=== PATIENT | male | born 1950 | race Caucasian/White ===

== ENCOUNTER 2019-04-12 09:32 | Day surgery (SDC) | payer MEDICARE, OTHER, SELFPAY ==
[2019-02-27 09:28] VITALS: BMI 29.7
--- NOTE | 2019-02-27 09:54 | HP_ITS ---
Intake Vital Signs 02/27/19 Height 5 ft 7.75 in 02/27/19 Weight: 194 lb 7 oz 02/27/19 Body Mass Index (BMI) 29.7 02/27/19 Blood Pressure 164/103 H 02/27/19 Blood Pressure Location Rt brachial 02/27/19 Blood Pressure Position Sitting 02/27/19 Respiratory Rate 20 H 02/27/19 Pulse Rate 106 H 02/27/19 Pulse Ox 96 Intake Visit Reasons: C-Scope Consult Chief Complaint: 5 year colonoscopy, fam hx Deli Associate Required: No Is patient in pain?: No Allergies No Known Allergies Allergy (Verified 02/27/19 09:29) Medications NK 02/27/19 [History Confirmed 02/27/19] [facility] Medical History (Updated 02/27/19 @ 09:53 by Edward Das MD) Family history of colon cancer in father (Acute) No significant medical problems (Acute) Surgical History (Updated 02/27/19 @ 09:27 by Perla Jones) History of cholecystectomy (Acute) History of colonoscopy (Acute ~2014) History of eye surgery (Acute) History of left inguinal hernia repair (Acute) History of ventral hernia repair (Acute ~2008) Status post laparoscopic Narciso fundoplication (Acute ~2003) Family History (Updated 02/27/19 @ 09:28 by Perla Jones) Mother Hypertension Heart disease Father Colon cancer Sister Cerebral palsy Social History (Updated 02/27/19 @ 09:54 by Edward Das MD) Smoking Status: Never smoker HPI HPI HPI: SINDY HENDRICKS, is a 69 M who presents to the office today for HPI HPI Surgical H&P: Yes HPI: SINDY HENDRICKS, is a 69 M who presents to the office today for surgical consultation regarding a colonoscopy. Primary care physician is Dr. Jefferson Abdalla and a written copy of my surgical consult recommendations will be returned to him. The patient has a family history of colon cancer in his father. The patient states that he has had previous endoscopies. It is most pertinent that his most recent attempt was performed by Dr. Farhan Gutierrez manager of environmental services with the [facility]. It is apparent that the patient presented and had a failed colonoscopy because of an inadequate bowel prep. Then the patient had a redo attempt and the examination could not be completed secondary to tortuosity. Then the patient was referred for a barium enema which was completed on May 16, 2014 demonstrating extensive diverticulosis but fecal debris limiting visualization. The patient is now referred for further surveillance technique. He denies bright red blood per rectum or melena. Weight is been stable. His health has otherwise been unchanged ROS General General: No weight change, appetite, fatigue, colon cancer, breast cancer or weakness HEENT HEENT: No difficulty swallowing, eye injury, eye surgery, swollen glands or hoarseness Endo Endocrine: No thyroid disease, diabetes mellitus, thyroid cancer, Hair loss, heat intolerance or cold intolerance Musc Musculoskeletal: No back problems, arthritis, rheumatoid arthritis, gout or joint pain Cardio Cardiovascular: No murmur, pacemaker, heart disease, atrial fibrillation, high blood pressure, heart attack, heart stent, palpitations, shortness of breat with exertion or chest pain Resp Respiratory: No shortness of breath, No sleep apnea, No cough, No COPD, No asthma, No emphysema, No wheezing Gastro Gastrointestinal: No abdominal pain, No nausea or vomiting, No diarrhea, No constipation, No blood in stool, No acid reflux, No hemorrhoids, No ulcers, No gallbladder problem, No black,tarry stools Gadiel Hematologic: No blood thinners, No blood disorders, No bleeding, No anemia, No blood clots Neuro Neurologic: No weakness Exam Const General: cooperative, healthy appearing, comfortable Nutritional Appearance: overweight Orientation: alert, awake [facility] Head: normal to inspection Chest Chest palpation & inspection: normal inspection of the chest Resp Effort & Inspection: normal respiratory effort Auscultation: clear to auscultation bilaterally Cardio Rate: regular rate Rhythm: regular rhythm Heart Sounds: no murmurs GI Palpation: soft, no hepatosplenomegaly Auscultation: normal bowel sounds Skin General: no rashes or lesions noted Neuro General: alert, awake Cognition: normal cognition Extrem General: no calf tenderness bilaterally Psych Affect: normal affect Assessment & Plan Problems 1. Family history of colon cancer in father Z80.0 Plan 69-year-old gentleman referred for colonoscopy. His most recent attempt 2014 was unsuccessful in part secondary to poor bowel prep on one occasion in part secondary to tortuosity. Even the barium enema appears to have a lack of complete clarity. I proposed with the patient a colonoscopy with possible biopsy or polypectomy as indicated. I anticipate utilizing monitored anesthesia care. We will place the patient on clear liquids for 2 days anticipate a 2-day bowel prep. He is aware of the technique, benefits, risks, alternatives. He is aware of the increased risk for technical difficulty associated with the procedure. He has had an opportunity to ask and have questions answered. We will schedule and proceed as noted. I appreciate the opportunity of assisting with his surgical care. CC: Dr. Jefferson Das M.D., F.A.C.S. Orders Orders: Colonoscopy Today Coding Level of Care Code 54762 Diagnoses Family history of colon cancer in father Z80.0 02/27/19 0955 <Electronically signed by Edward reddy MD> Date _ Edward Das MD I have re-examined the patient. There are no clinical changes since date of exam.
[2019-04-12] VITALS (7 sets, daily range): BP systolic 82–123; BP diastolic 61–95; PULSE 88–102; RESP 16; TEMP 36.2–36.8; O2SAT 91–96; BMI 28.8
[2019-04-12] MEDS: Lactated Ringers 1,000 ML 100 ML IV (10:24)
--- NOTE | 2019-04-12 10:45 | COLBX_PTH ---
PATIENT: SINDY HENDRICKS LOC: EN U#:[id number] AGE/SX: 69/M ROOM: RE04/12/[address]: Dr. Edward Das MD : 1950 BED: DIS: 04/12/2019 SPEC #: [id number] RECD: 04/12/19 11:27 STATUS: SCOTT FUCamelia #: [id number] MAGNUS: 04/12/19 10:[address]: Edward Das DEPT: SURGICAL PATHOLOGY RECD BY: Riccardo Dickson ENTERED: 04/12/19 11:54 SP TYPE: COLON BX OTHR DR: Dr. Jefferson Abdalla MD Tissues: Sigmoid colon biopsy Procedures: Surgery Specimen Level IV HEADER OPERATION: Colonoscopy (MAC) PRE-OP DIAGNOSIS: Screening colonoscopy TISSUE SUBMITTED: Mucosal fullness, proximal sigmoid MICROSCOPIC DIAGNOSIS Mucosal fullness, proximal sigmoid, biopsy: Fragments of colonic mucosa with focal hyperplastic changes. SJ:pauly 04/15/19 MICROSCOPIC DESCRIPTION Slides are reviewed. GROSS DESCRIPTION Received in fixative is one container labeled with the patient's name and designated mucosal fullness proximal sigmoid. The specimen consists of two irregular fragments of light piedra soft tissue that in aggregate measure 0.6 x 0.3 x 0.1 cm. The specimen is totally submitted in one cassette. / SJ:pauly 04/12/19 TC:5 CPT: 96944
--- NOTE | 2019-04-15 14:18 | OP.CCLET_ITS ---
04/15/2019 Jefferson Abdalla Re : Colonoscopy procedure for Carlos Chan Dear Lianne This procedure was performed on Friday, April 12, 2019. My impressions and recommendations are as follows: Impressions : - Preparation of the colon was fair. Diverticulum with stool and scattered areas of thick liquid stool which could partially be aspirated. - Non-thrombosed external hemorrhoids, non-thrombosed internal hemorrhoids, internal hemorrhoids that prolapse with straining, but require manual replacement into the anal canal (Grade III) and enlarged prostate found on digital rectal exam. - Diverticulosis in the entire examined colon. - One 6 mm mucosal fullness/polyp in the proximal sigmoid colon, removed with a cold biopsy forceps. Resected and retrieved. Recommendations : - Await pathology results. - Repeat colonoscopy in 5 years for surveillance based on pathology results. May simply be mucosa. - Telephone my office for pathology results in 1 week. - Continue present medications. My findings are described in the full procedure note, which is enclosed. If I can be of further assistance, please feel free to contact me at Doctor phone number(s): Work: . Sincerely, Edward Das MD 04/12/2019 11:19:29 AM This report has been signed electronically.
--- NOTE | 2019-04-15 14:18 | OP.COLON_ITS ---
Patient Name: Carlos Chan Procedure Date: 04/12/2019 10:44 AM Date of : 1950 Age: 69 Procedure: Colonoscopy Indications: Screening for colorectal malignant neoplasm Providers: Edward Das MD Referring MD: Jefferson Abdalla Medicines: See the Anesthesia note for documentation of the administered medications Patient Profile: Last Colonoscopy: 2014. Complications: No immediate complications. Procedure: Pre-Anesthesia Assessment: - Prior to the procedure, a History and Physical was performed, and patient medications and allergies were reviewed. The patient's tolerance of previous anesthesia was also reviewed. The risks and benefits of the procedure and the sedation options and risks were discussed with the patient. All questions were answered, and informed consent was obtained. Prior Anticoagulants: The patient has taken no previous anticoagulant or antiplatelet agents. ASA Grade Assessment: II - A patient with mild systemic disease. After reviewing the risks and benefits, the patient was deemed in satisfactory condition to undergo the procedure. After I obtained informed consent, the scope was passed under direct vision. Throughout the procedure, the patient's blood pressure, pulse, and oxygen saturations were monitored continuously. The adult colonoscope was introduced through the anus and advanced to the cecum, identified by appendiceal orifice and ileocecal valve. The colonoscopy was performed with moderate difficulty due to multiple diverticula in the colon. Successful completion of the procedure was aided by changing the patient to a supine position and using manual pressure. The patient tolerated the procedure well. The quality of the bowel preparation was fair. The ileocecal valve and the appendiceal orifice were photographed. Scope In: 10:53:12 AM Scope Withdrawal Time 0 hours 9 minutes 55 seconds Scope Out: 11:11:39 AM Total Procedure Duration Time 0 hours 18 minutes 27 seconds Findings: The digital rectal exam findings include non-thrombosed external hemorrhoids, non-thrombosed internal hemorrhoids, internal hemorrhoids that prolapse with straining, but require manual replacement into the anal canal (Grade III) and enlarged prostate. Multiple diverticula were found in the entire colon. A 6 mm mucosal fullness, possible polyp was found in the proximal sigmoid colon. This was sessile and was removed with a cold biopsy forceps. Resection and retrieval were complete. Impression: - Preparation of the colon was fair. Diverticulum with stool and scattered areas of thick liquid stool which could partially be aspirated. - Non-thrombosed external hemorrhoids, non-thrombosed internal hemorrhoids, internal hemorrhoids that prolapse with straining, but require manual replacement into the anal canal (Grade III) and enlarged prostate found on digital rectal exam. - Diverticulosis in the entire examined colon. - One 6 mm mucosal fullness/polyp in the proximal sigmoid colon, removed with a cold biopsy forceps. Resected and retrieved. Recommendation: - Await pathology results. - Repeat colonoscopy in 5 years for surveillance based on pathology results. May simply be mucosa. - Telephone my office for pathology results in 1 week. - Continue present medications. Procedure Code(s): --- Professional --- 13705, Colonoscopy, flexible; with biopsy, single or multiple Diagnosis Code(s): --- Professional --- Z12.11, Encounter for screening for malignant neoplasm of colon K64.2, Third degree hemorrhoids K64.4, Residual hemorrhoidal skin tags D12.5, Benign neoplasm of sigmoid colon K57.30, Diverticulosis of large intestine without perforation or abscess without bleeding N40.0, Benign prostatic hyperplasia without lower urinary tract symptoms CPT copyright 2017 [employer]. All rights reserved. The codes documented in this report are preliminary and upon medical office manager review may be revised to meet current compliance requirements. Edward Das MD 04/12/2019 11:19:29 AM This report has been signed electronically. Number of Addenda: 0 Note Initiated On: 04/12/2019 10:44 AM
== END 2019-04-12 12:06 | disposition home or self-care (01) ==
LOC: EN 09:33 → AC 09:36
PROVIDERS: Family Provider Family Medicine; PCP Family Medicine; Referring Provider Family Medicine; Visit Provider Surgery
PROC: 0DJD8ZZ Inspection of Lower Intestinal Tract, Via Natural or Artificial Opening Endoscopic (ICD-10-PCS; CPT 45378; principal; 2019-04-12 10:40)
DX: Z12.11 Encounter for screening for malignant neoplasm of colon (principal); K64.2 Third degree hemorrhoids; K64.4 Residual hemorrhoidal skin tags; D12.5 Benign neoplasm of sigmoid colon; K57.30 Diverticulosis of large intestine without perforation or abscess without bleeding; N40.0 Benign prostatic hyperplasia without lower urinary tract symptoms; Z80.0 Family history of malignant neoplasm of digestive organs; E66.3 Overweight; Z68.29 Body mass index [BMI] 29.0-29.9, adult
CPT/HCPCS: 45380; 88305; J7120; J2405

== ENCOUNTER → 2020-01-28 16:40 | Outpatient (CLI) | payer MEDICARE, OTHER, SELFPAY ==
[2019-04-12 10:17] VITALS: BMI 28.8
== END ==
PROVIDERS: PCP Family Medicine; Referring Provider Family Medicine; Visit Provider Family Medicine
DX: Z03.818 Encounter for observation for suspected exposure to other biological agents ruled out (principal)
CPT/HCPCS: 87635; C9803; U0003

== ENCOUNTER → 2021-01-20 | Outpatient (CLI) | payer MEDICARE, OTHER, SELFPAY | END | disposition home or self-care (01) | LOC: LABSPEC 01-21 09:09 | PROVIDERS: PCP Family Medicine; Visit Provider Family Medicine | DX: Z20.822 Contact with and (suspected) exposure to COVID-19 (principal) | CPT/HCPCS: 87635; U0005; U0003 ==

== ENCOUNTER → 2021-02-03 07:10 | Outpatient (CLI) | payer MEDICARE, OTHER, SELFPAY ==
--- NOTE | 2021-02-03 07:13 | CT_ITS ---
STUDY: CT ABDOMEN AND PELVIS WITH CONTRAST REASON FOR EXAM: Male, 71 years old. 4 month history of left lower quadrant pain. RADIATION DOSAGE (If Supplied By Facility): CTDIvol = ( 17.17 ) mGy, DLP = ( 1021.64 ) mGycm TECHNIQUE: Transaxial images were obtained from the dome of the diaphragm to the symphysis pubis without oral contrast. 100 ML ISOVUE 370 was administered. Sagittal and coronal images were reconstructed. Individualized dose optimization techniques were used for this CT. COMPARISON: None. FINDINGS: The visualized lung bases are unremarkable. The visualized portions of the heart are within normal limits. There is decreased attenuation of the liver consistent with steatosis. The patient is status post cholecystectomy. Normal spleen. Normal pancreas. Normal bilateral adrenal glands. Normal right kidney. Normal left kidney. There is a moderate sized hiatal hernia. The patient is status post partial gastrectomy. Normal small intestine. There are multiple colonic diverticula consistent with diverticulosis. The appendix is visualized and appears normal. There is diffuse atherosclerotic calcification of the abdominal aorta, without a demonstrated aneurysm. Normal inferior vena cava. Normal retroperitoneum. Normal urinary bladder. There is enlargement of the prostate gland. It measures 5.5 cm x 3.9 cm. This causes indentation of the base of the bladder. There is a small umbilical hernia containing fat. Small right inguinal hernia containing fat. Mild degree of disc space narrowing and disc degeneration at the L5-S1. CT/Abdomen/Pelvis WITH Contrast IMPRESSION: Fatty infiltration of the liver. Sigmoid diverticulosis. Moderate sized hiatal hernia with evidence of prior gastric surgery. Small right inguinal hernia containing fat. Electronically Signed: Hayden Rogers MD at 9:24 EST , Service support ,
[2021-02-03 07:25] LABS: CREATININE FINGERSTICK 1.1 mg/dL (0.70-1.30); EGFR FINGERSTICK > 60.0000 mL/min (>60)
== END ==
PROVIDERS: PCP Family Medicine; Referring Provider Family Medicine; Visit Provider Family Medicine
DX: K76.0 Fatty (change of) liver, not elsewhere classified (principal); K57.30 Diverticulosis of large intestine without perforation or abscess without bleeding; K44.9 Diaphragmatic hernia without obstruction or gangrene; K40.90 Unilateral inguinal hernia, without obstruction or gangrene, not specified as recurrent
CPT/HCPCS: 74177; Q9967

== ENCOUNTER → 2021-03-04 09:37 | Outpatient (CLI) | payer MEDICARE, OTHER, SELFPAY ==
--- NOTE | 2021-03-04 09:42 | CDU_ITS ---
Reason For Study: amourosis fugax Rt. Velocities/BP Lt. Velocities/BP Prox CCA 87.8/18.6 cm/sec. Prox CCA 86.3/23.7 cm/sec. Mid CCA 63.0/14.7 cm/sec. Mid CCA 75.3/17.6 cm/sec. Dist CCA 52.6/14.7 cm/sec. Dist CCA 77.7/17.6 cm/sec. Prox ICA 59.7/12.4 cm/sec. Prox ICA 42.1/13.9 cm/sec. Mid ICA 41.0/16.8 cm/sec. Mid ICA 60.5/20.0 cm/sec. Dist ICA 43.2/16.8 cm/sec. Dist ICA 58.1/20.0 cm/sec. Rt. ICA/CCA = .9. Lt. ICA/CCA = .8. Prox ECA 73.4/14.7 cm/sec. Prox ECA 86.3/13.9 cm/sec. Rt. Vert. 32.2/11.3 cm/sec. Lt. Vert. 48.5/7.8 cm/sec. Right Extracranial There is intimal thickening but no significant atherosclerotic plaque noted in the right common carotid artery. There is intimal thickening but no significant atherosclerotic plaque noted in the right internal carotid artery. There is intimal thickening but no significant atherosclerotic plaque noted in the right external carotid artery. Antegrade flow is noted in the right vertebral artery. Left Extracranial There is intimal thickening but no significant atherosclerotic plaque noted in the left common carotid artery. There is intimal thickening but no significant atherosclerotic plaque noted in the left internal carotid artery. There is intimal thickening but no significant atherosclerotic plaque noted in the left external carotid artery. Antegrade flow is noted in the left vertebral artery. Procedure Carotid Duplex 68364. This is a Carotid Duplex examination using B-mode, color flow and specral Doppler. The exam was diagnostic. Exam performed in department. VL/Carotid Duplex Ultrasound Interpretation Summary No hemodynamically significant plaque or stenosis bilateral extracranial caroti d arteries with less than 50% stenosis bilateral internal carotid arteries Less than 50% stenosis bilateral external carotid arteries Patent and antegrade vertebral arteries bilaterally Ordering Physician: Pierre Gonzalez Performed By: Osmin Wright RVT
== END ==
PROVIDERS: PCP Family Medicine; Visit Provider Ophthalmology
DX: H53.10 Unspecified subjective visual disturbances (principal)
CPT/HCPCS: 93880

== ENCOUNTER 2021-04-19 10:35 | Day surgery (SDC) | payer MEDICARE, OTHER, SELFPAY ==
--- NOTE | 2021-04-15 12:44 | EKG12_ITS ---
Test Reason : PREOP Blood Pressure : / mmHG Vent. Rate : 089 BPM Atrial Rate : 089 BPM P-R Int : 218 ms QRS Dur : 088 ms QT Int : 354 ms P-R-T Axes : 043 -25 030 degrees QTc Int : 430 ms Sinus rhythm with 1st degree A-V block Inferior infarct , age undetermined Abnormal ECG Confirmed by VIRGINIA PEREIRA, MICHAELA ([id number]), video editor HEATHER WILBURN ([id number]) on 04/16/2021 8:56:40 AM Referred By: Edward Das Confirmed By:MICHAELA COLEMAN MD
[2021-04-15 13:18] LABS: Absolute Lymphocyte Count 1.93 X10^3/uL (0.83-4.51); Basophil# 0.04 X10^3/uL; Basophil% 0.5 % (0-1); Eosinophil# 0.19 X10^3/uL; Eosinophils% 2.4 % (0-5); Hematocrit 44.2 % (40-54); Lymphocyte # 1.93 X10^3/ul (0.83-4.51); Lymphocyte % 24.5 % (19-41); Mean Corp Hgb Conc 31.7 g/dL (32-36); Mean Corpuscular Hgb 29.8 pg (27.0-32.0); Mean Platelet Vol. 10.5 fl (6.2-12.0); Monocyte# 0.64 X10^3/uL; Monocyte% 8.1 % (0-10); NRBC Flagged by Analyzer 0 % (0-5); Neutrophil # 5.04 X10^3/uL (2.7-7.7); Neutrophil % 64.1 % (47-70); Platelet Count 239 K/mm3 (150-450); RBC Distribution Width CV 12.8 % (11.6-14.6); RBC Distribution Width SD 44.4 fl (35.1-43.9); White Blood Count 7.9 K/mm3 (4.4-11.0)
[2021-04-15 13:41] LABS: Anion Gap 4 (5-15); BUN 19 mg/dL (7-18); BUN/Creat Ratio 16.5 RATIO (10-20); Calcium,Total 8.5 mg/dL (8.5-10.1); Chloride 108 mmol/L (98-107); Creatinine, Serum 1.15 mg/dL (0.70-1.30); EST Glomerular Filtration Rate 67 mL/min (>60); Est Glom Filt Rate - Afr Amer 81 mL/min (>60); Glucose 95 mg/dL (74-106); Sodium Level 140 mmol/L (136-145)
[2021-04-19 10:56] VITALS: BP 126/95; PULSE 122; RESP 20; TEMP 36.2; O2SAT 99; BMI 29.6
[2021-04-19] MEDS: Lactated Ringers 1,000 ML 15 ML IV (11:10)
--- NOTE | 2021-04-19 11:20 | HP.PCM_ITS ---
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 Is patient in pain?: No Allergies No Known Allergies Allergy (Verified 04/05/21 13:33) Medications aspirin 81 mg tablet,delayed release 81 mg PO DAILY 04/05/21 [History Confirmed 04/05/21] tamsulosin 0.4 mg capsule 0.4 mg PO QHS #30 cap 04/05/21 [Rx Confirmed 04/05/21] PFSH Medical History Family history of colon cancer in father No significant medical problems Surgical History History of cholecystectomy History of colonoscopy (~2014) History of eye surgery History of left inguinal hernia repair History of ventral hernia repair (~2008) Status post laparoscopic Narciso fundoplication (~2003) Family History (Updated 04/05/21 @ 13:31 by Angelica Monday) Mother Hypertension Heart disease Arthritis Diabetes Father Colon cancer CVA (cerebral vascular accident) Sister Cerebral palsy Social History (Updated 02/27/19 @ 09:[address] Edward Das MD) Smoking Status: Never smoker HPI HPI HPI: SINDY HENDRICKS, is a 71 M who presents to the office today for surgical consultation regarding an umbilical hernia and a right inguinal hernia. The patient is referred by Dr. Jefferson Abdalla and a written copy of my surgical consult and recommendations will return to him I most recently assisted him April 12, 2019 with a colonoscopy. Bowel prep was fair. Diverticulum noted, hemorrhoids, solitary polyp of the proximal sigmoid which was hyperplastic. The patient presents today because he has been having some right lower quadrant pain. He claims that he routinely runs for exercise. This is been limited because of the right lower quadrant discomfort. He claims that kicking a ball also was uncomfortable. Any type of physical exercise or straining causes discomfort. He reminds me that 7 or 8 years ago I assisted him with a left inguinal hernia repair. 18 years ago at [facility] he had a hiatal hernia repair. At the [facility] February 03, [address] scan of the abdomen pelvis was obtained. Liver had steatosis. Moderate size hiatal hernia noted suggesting possible previous gastrectomy but the patient states just a hiatal hernia repair. Colonic diverticulosis identified. Patient has a markedly enlarged prostate at 5.5 x 3.9 cm. There is a small umbilical hernia with fat. There is a small right inguinal hernia with fat. ROS General General: No weight change, appetite, fatigue, colon cancer, breast cancer or weakness HEENT HEENT: No difficulty swallowing, eye injury, eye surgery, swollen glands or hoarseness Endo Endocrine: No thyroid disease, diabetes mellitus, thyroid cancer, Hair loss, heat intolerance or cold intolerance Skin Skin: No rash or changing moles Musc Musculoskeletal: No back problems, arthritis, rheumatoid arthritis, gout or joint pain Cardio Cardiovascular: No murmur, pacemaker, heart disease, atrial fibrillation, high blood pressure, heart attack, heart stent, palpitations, shortness of breat with exertion or chest pain Psych Psychiatric: No depression, anxiety or hearing voices Resp Respiratory: No shortness of breath, No sleep apnea, No cough, No COPD, No asthma, No emphysema and No wheezing Gastro Gastrointestinal: Yes abdominal pain, No nausea or vomiting, No diarrhea, No constipation, No blood in stool, No acid reflux, No hemorrhoids, No ulcers, No gallbladder problem and No black,tarry stools Additional Details: Pt states abdominal discomfort but denies pain Gadiel Hematologic: Yes blood thinners, No blood disorders, No bleeding, No anemia and No blood clots Additional Details: 81mg ASA daily Neuro Neurologic: No system reviewed and no additional complaints, except as documented, No as per HPI, No abnormal gait, No abnormal hearing, No abnormal movements, No abnormal speech, No behavioral changes, No burning sensations, No confusion, No convulsions, No disequilibrium, No dizziness, No localized weakness, No frequent falls, No headache(s), No lack of coordination, No loss of vision, No memory loss, No numbness, No other visual disturbances, No radicular pain, No restless legs, No sensory deficit, No syncope, No tingling, No tremor(s), No weakness and No other Exam Const General: cooperative, healthy appearing, comfortable and no acute distress Nutritional Appearance: average body habitus Orientation: alert and awake [facility] Head: normal to inspection Eyes General: appearance normal, both eyes and all related structures Neck Neck: normal visual inspection Chest Chest palpation & inspection: normal inspection of the chest Resp Effort & Inspection: normal respiratory effort Auscultation: clear to auscultation bilaterally Cardio Rate: regular rate Rhythm: regular rhythm GI Palpation: soft and no hepatosplenomegaly Auscultation: normal bowel sounds Other: Long midline incision extending from the xiphoid down to the umbilicus. Tenderness deep within the umbilicus consistent with a ventral incisional hernia related to the patient's previous efforts. Other: Testicles are descended Left groin solid and intact Obvious defect right groin likely direct defect slightly tender to deep palpation but reducible Musc Cervical Spine: normal cervical lordosis Skin General: no rashes or lesions noted Neuro General: patient alert and patient awake Extrem General: no calf tenderness Psych Appearance: grossly normal Assessment and Plan Assessment and Plan (1) Inguinal hernia of right side without obstruction or gangrene: Status: Acute (2) Ventral incisional hernia without obstruction or gangrene: Status: Acute Plan - Dr. Edward Das MD: Patient with a symptomatic right inguinal hernia. Findings suggest also a ventral incisional hernia at the umbilicus. I propose for him a laparoscopic right inguinal hernia repair. I will anticipate a direct approach at the umbilicus with careful cutdown technique and a Fabian catheter insertion. Then anticipate hopefully a clean laparoscopic repair of the right inguinal hernia with mesh. Care will need to be observed for possible adhesions related to his remote open hiatal hernia repair done through a long xiphoid to umbilical incision. The patient has had an opportunity to ask and have questions answered. He has a large prostate. Notes that he does have urinary retention and when he had his cholecystectomy in the past he had to have a catheter postoperatively. We will initiate him on tamsulosin therapy 0.4 mg nightly. He is aware that he may still require a catheter post procedure if he is not able to void. He has had an opportunity to ask and have questions answered. We will schedule and proceed at his discretion. He is aware of the COVID-19 surge and is aware that we are still permitted to do outpatient surgical procedures. I appreciate the opportunity of assisting with the surgical care. Copy: Dr. Jefferson Das M.D., F.A.C.S. I have re-examined the patient. There are no clinical changes since date of exam.
--- NOTE | 2021-04-19 11:21 | EX.PCM.DISCH ---
Discharge Instructions Procedure General Surgery Diet Discharge Diet: Light diet - advance as tolerated (if you have questions about your diet instructions, please talk to you doctor.) Activity Discharge Activity: May Not Drive (for 3-5 days or while taking narcotic pain medicine.) May shower in (days): 1 Lifting Restrictions: 10 pounds Dressing / Incision Call your doctor if your incision/area has: Continuous Slow Oozing, Sudden Increased Bleeding, Increased Pain/ Swelling, Increased Redness and Foul Smelling Discharge Call your doctor if you observe: Fever of 101 or Higher Suture Line Care: Avoid Pulling/Pushing and Avoid Pinching/Bending Additional Dressing/Incision Instructions:: Change or remove dressing in 4 days. Leave steri-strips in place for 1 week. Follow Up Care Please Follow Up With: Edward Das MD When: Call [phone] to make an appointment to be seen in about 10 days. Test Results: Test results from this visit will be discussed in further detail at your follow-up appointment, if applicable. Discharge Plan Admission Attending Provider: Edward Das Primary Care Provider: Jefferson Abdalla Discharge Orders/Prescriptions Prescriptions: No Action aspirin [Adult Low Dose Aspirin] 81 mg tablet,delayed release (DR/EC) 81 mg PO DAILY RF: 0 tamsulosin [Flomax] 0.4 mg capsule 0.4 mg PO QHS Qty: 30 RF: 0 Probiotic 10 billion cell Capsule 10,000 mmu cells PO DAILY RF: 0
[2021-04-19] MEDS: Cefazolin 2 GM in 0.9% Normal Saline 100 ML IV (11:53)
[2021-04-19] MEDS: Bupivacaine Mpf 0.5% 30 ML VIAL (12:15)
--- NOTE | 2021-04-19 12:55 | HERN_PTH ---
PATIENT: SINDY HENDRICKS [place] [facility] [place][id number] AGE/SX: 71/M ROOM: RE04/19/[address]: Dr. Edward Das MD : 1950 BED: DIS: 04/19/2021 SPEC #: [id number] RECD: 04/19/21 14:32 STATUS: SCOTT HYATT #: [id number] MAGNUS: 04/19/21 12:[address]: Edward Das DEPT: SURGICAL PATHOLOGY RECD BY: Ila Carolina ENTERED: 04/20/21 11:21 SP TYPE: Hernia OTHR DR: Dr. Jefferson Abdalla MD Tissues: HERNIA Procedures: Surgery Specimen Level II HEADER OPERATION: Laparoscopic inguinal hernia repair, open ventral/umbilical PRE-OP DIAGNOSIS: Right inguinal hernia, umbilical/ventral hernia TISSUE SUBMITTED: Umbilical hernia sac and contents MICROSCOPIC DIAGNOSIS Soft tissue of umbilical region, excision: Fragment of fibrofatty tissue consistent with hernia sac and contents. AM:pauly 04/21/2021 MICROSCOPIC DESCRIPTION Slides are reviewed. GROSS DESCRIPTION Received in fixative is one container labeled with the patient's name and designated umbilical hernia sac and contents. The specimen consists of two pieces of yellow adipose tissue that in aggregate measure 2 x 1.5 x 0.5 cm. Sections reveal yellow adipose cut surfaces. The larger piece is serially sectioned. The entire specimen is submitted in one cassette. / SJ:pauly 04/20/2021 TC:5 CPT: 47222
--- NOTE | 2021-04-19 13:32 | PCM.OPRPT ---
Problems Associated Problem List Diagnoses (1) Inguinal hernia of right side without obstruction or gangrene: (2) Ventral incisional hernia without obstruction or gangrene: Report of Operation Date of Procedure: 04/19/21 Pre-Operative Diagnosis: Ventral incisional umbilical hernia, right inguinal hernia Post-Operative Diagnosis: Ventral incisional umbilical hernia, direct and indirect right inguinal hernia Surgery/Procedure Performed:: Laparoscopic right inguinal herniorrhaphy with Bard 3D max extra-large mesh. Lot [id number], reference [id number], expiry date 11/21/2025 Ventral incisional umbilical herniorrhaphy with Ventralex ST 6.4 cm diameter: Lot number [id number], reference #[id number], expiry date 11/21/2022 Secure strap Lot number [id number], expiry date September 2022 Description of Surgical Findings:: Timeout informed consent was obtained. Clean procedure. 71-year-old gentleman was taken to the operating place upon the table underwent general endotracheal intubation esthesia. The abdomen sterilely prepped and draped. 1% lidocaine mixed 50-50 with 0.5% Marcaine was used as a local anesthetic. Throughout the procedure total 30 cc was used. A transverse infraumbilical incision was created sharp dissection carried down through the subcutaneous tissue the ventral incisional hernia at the umbilicus was identified the sac was dissected free direct access was gained to the peritoneum and a sun catheter was inserted the abdomen insufflated with CO2 to a pressure of 10 mmHg pressure. Under recognization 5 mm trochars were placed in the right and left lower quadrant there were adhesions of omentum surrounding the S sign and these were transected using Hem-o-mitchel clips and hot hook electrocautery until I had the entire periumbilical area freed of adhesions. A ileal inguinal nerve block was performed in the right groin using laparoscopic control. The peritoneum superior lateral to the internal ring was incised carried medially the peritoneum was then completely dissected free it became evident that the patient had both an indirect and indirect hernia. The direct indirect and femoral area completely dissected. A Bard 3D max extra-large mesh was placed so as to cover the direct indirect and femoral area. It was secured in place medially superiorly and laterally with secure strap. Excellent positioning was achieved. The peritoneum was approximated to itself with secure strap. Small rent in the peritoneum was repaired with Hem-o-mitchel clips. Complete obliteration of the mesh was achieved. Subsequently the abdomen was allowed to deflate through an antiviral valve. A 6.[address] mesh was placed at the umbilical site and the tails were secured with 0 Nurolon. The fascia was approximated transversely with the same. The abdomen was reinsufflated to 6 mmHg pressure. A single secure strap was used to make sure that the Ventralex was flat. I then used a Hem-o-mitchel clip to assure that omentum was directly beneath the mesh. Inspection revealed that all bowel was in normal fashion without adverse event. The abdomen was now allowed to deflate of the CO2. Skin edges were approximated with interrupted and running subicular 4-0 Monocryl. Steri-Strips Telfa OpSite dressings applied. Sponge and instrument and needle counts were reported to certainly be correct. Specimens ventral incisional umbilical hernia sac with contents. Drains none. Blood loss minimal. Edward Das M.D., F.A.C.S. Surgeon: Edward Das Type of Anesthesia: General and Local Anesthesiologist: Ney Mohan
[2021-04-19 13:48] VITALS: BP 108/76; BP 126/95; PULSE 92; RESP 18; TEMP 36.4; O2SAT 99
[2021-04-19 14:00] VITALS: BP 103/68; BP 126/95; PULSE 92; RESP 18; O2SAT 95
[2021-04-19 14:15] VITALS: BP 111/72; BP 126/95; PULSE 98; RESP 18; O2SAT 98
[2021-04-19 14:45] VITALS: BP 123/79; BP 126/95; PULSE 103; RESP 16; TEMP 36.1; O2SAT 93
[2021-04-19 15:46] VITALS: BP 126/95; BP 138/86; PULSE 94; RESP 16; TEMP 35.8; O2SAT 96
== END 2021-04-19 23:59 | disposition home or self-care (01) ==
LOC: SDC 10:36 → AC 10:37
PROVIDERS: PCP Family Medicine; Referring Provider Surgery; Visit Provider Surgery
PROC: (CPT 49650; principal; 2021-04-19 12:35)
DX: K40.90 Unilateral inguinal hernia, without obstruction or gangrene, not specified as recurrent (principal); K43.2 Incisional hernia without obstruction or gangrene; K66.0 Peritoneal adhesions (postprocedural) (postinfection); Z79.82 Long term (current) use of aspirin; Z80.0 Family history of malignant neoplasm of digestive organs
CPT/HCPCS: 49650; 49560; 49568; 00840; 36415; 80048; 85025; 88302; 93005; C1781; J7120; J2405

== ENCOUNTER 2021-05-20 18:05 | Outpatient (CLI) | payer MEDICARE, OTHER, SELFPAY | END 2021-05-20 23:59 | disposition home or self-care (01) | PROVIDERS: PCP Family Medicine; Visit Provider Family Medicine | DX: N41.0 Acute prostatitis (principal) | CPT/HCPCS: 87077; 87086; 87088 ==

== ENCOUNTER 2022-10-04 08:26 | Outpatient (CLI) | payer MEDICARE, OTHER, SELFPAY ==
[2022-10-04 10:39] LABS: Absolute Lymphocyte Count 1.87 X10^3/uL (0.83-4.51); Absolute Neutrophil Count 3.4 X10^3/uL (2.0-7.7); Basophil# 0.03 X10^3/uL; Basophil% 0.5 % (0-1); Eosinophil# 0.28 X10^3/uL; Eosinophils% 4.6 % (0-5); Hematocrit 44.7 % (40-54); Hemoglobin 14.8 g/dL (13.0-16.5); Lymphocyte # 1.87 X10^3/ul (0.83-4.51); Lymphocyte % 30.6 % (19-41); Mean Corp Hgb Conc 33.1 g/dL (32-36); Mean Corpuscular Volume 90.5 fL (80-94); Mean Platelet Vol. 10.6 fl (6.2-12.0); Monocyte# 0.55 X10^3/uL; NRBC Flagged by Analyzer 0 % (0-5); Neutrophil # 3.37 X10^3/uL (2.7-7.7); Neutrophil % 55.1 % (47-70); Platelet Count 262 K/mm3 (150-450); RBC Distribution Width CV 13.5 % (11.6-14.6); Red Blood Count 4.94 M/mm3 (4.6-6.2); White Blood Count 6.1 K/mm3 (4.4-11.0)
[2022-10-04 11:29] LABS: ALB/GLOB Ratio 0.8 RATIO (0.9-2.4); AST(SGOT) 18 U/L (15-37); Alanine Aminotransfer ALT/SGPT 19 U/L (16-61); Albumin, Serum 3.5 g/dL (3.2-5.0); Alkaline Phosphatase 88 U/L (45-117); Anion Gap 5 (5-15); BUN 20 mg/dL (7-18); BUN/Creat Ratio 17.2 RATIO (10-20); Chloride 109 mmol/L (98-107); Cholesterol 140 mg/dL (200); Creatinine, Serum 1.16 mg/dL (0.70-1.30); EST Glomerular Filtration Rate 66 mL/min (>60); Est Glom Filt Rate - Afr Amer 80 mL/min (>60); Globulin 4.3 g/dL (2.2-4.2); Glucose 93 mg/dL (74-106); High Density Lipoprotein 48 mg/dL; Protein, Total 7.8 g/dL (6.4-8.2); Sodium Level 137 mmol/L (136-145); Triglycerides 127 mg/dL; Very Low Density Lipoprotein 25 mg/dL (5-40)
== END 2022-10-04 23:59 | disposition home or self-care (01) ==
LOC: MTLAB 08:29
PROVIDERS: PCP Family Medicine; Referring Provider Family Medicine; Visit Provider Family Medicine
DX: Z00.00 Encounter for general adult medical examination without abnormal findings (principal); Z13.1 Encounter for screening for diabetes mellitus; Z13.220 Encounter for screening for lipoid disorders
CPT/HCPCS: 36415; 80053; 80061; 85025

== ENCOUNTER → 2023-03-03 | Outpatient (CLI) | payer MEDICARE, OTHER, SELFPAY ==
[2023-03-03 12:40] LABS: Absolute Lymphocyte Count 1.92 X10^3/uL (0.83-4.51); Absolute Neutrophil Count 3.8 X10^3/uL (2.0-7.7); Basophil# 0.03 X10^3/uL; Basophil% 0.5 % (0-1); Hematocrit 45.1 % (40-54); Hemoglobin 14.9 g/dL (13.0-16.5); Lymphocyte # 1.92 X10^3/ul (0.83-4.51); Lymphocyte % 29.1 % (19-41); Mean Corpuscular Hgb 31.1 pg (27.0-32.0); Mean Corpuscular Volume 94.2 fL (80-94); Mean Platelet Vol. 10.6 fl (6.2-12.0); Monocyte# 0.57 X10^3/uL; Monocyte% 8.6 % (0-10); NRBC Flagged by Analyzer 0 % (0-5); Neutrophil # 3.84 X10^3/uL (2.7-7.7); Neutrophil % 58.3 % (47-70); Platelet Count 272 K/mm3 (150-450); RBC Distribution Width CV 12.9 % (11.6-14.6); RBC Distribution Width SD 44.4 fl (35.1-43.9); Red Blood Count 4.79 M/mm3 (4.6-6.2); White Blood Count 6.6 K/mm3 (4.4-11.0)
[2023-03-03 13:59] LABS: Cholesterol 150 mg/dL (200); High Density Lipoprotein 50 mg/dL; PSA,Total - Annual Screen 1.47 ng/mL (0.00-4.00); Triglycerides 143 mg/dL; Very Low Density Lipoprotein 29 mg/dL (5-40)
== END | disposition home or self-care (01) ==
LOC: MFPLAB 11:07
PROVIDERS: PCP Family Medicine; Visit Provider Family Medicine
DX: Z00.00 Encounter for general adult medical examination without abnormal findings (principal); Z12.5 Encounter for screening for malignant neoplasm of prostate; Z13.1 Encounter for screening for diabetes mellitus; Z13.6 Encounter for screening for cardiovascular disorders; Z13.220 Encounter for screening for lipoid disorders; R36.1 Hematospermia
CPT/HCPCS: 36415; 80061; 84153; 85025; G0103

== ENCOUNTER 2023-04-13 11:12 | Outpatient (CLI) | payer MEDICARE, OTHER, SELFPAY ==
--- OUTSIDE RECORDS SUMMARY | 2023-04-13 11:46 | XMS RPT_ITS | CCD ---
Author Name Unknown Address [address] [place] [address] Organization [facility] Care Team Providers Care Traffic Engineering Director Name Role Phone Farhan Lopez Primary Care Provider Maury Leavitt Primary Care Provider Medications Completed/Discontinued Medications Medication Drug Class(es) Dates Sig (Normalized) Sig (Original) tamsulosin hydrochloride 0.4 mg oral capsule (1 source) alpha-Adrenergic Nandini Start: 11-12-2010 End: 02-09-2012 take 1 capsule by mouth once daily at bedtime tamsulosin (FLOMAX) 0.4 mg ORAL Cp24 Take 1 capsule by mouth daily at bedtime. 14 capsule 0 11/12/2010 02/09/2012 Discontinued (Course of therapy completed) Problems Active Problems Problem Classification Problem Date Documented Date Episodic/Chronic Diverticulosis and diverticulitis (1 source) Diverticulosis of colon; Translations: [Diverticulosis of large intestine without perforation or abscess without bleeding] Onset: 06-13-2008 02-16-2010 Chronic Esophageal disorders (1 source) Gastro-esophageal reflux disease with esophagitis; Translations: [Reflux esophagitis] Onset: 02-02-2005 02-16-2010 Chronic Hyperplasia of prostate (1 source) Benign prostatic hyperplasia; Translations: [Benign prostatic hyperplasia without lower urinary tract symptoms] Onset: 02-16-2010 02-16-2010 Chronic Other nutritional; endocrine; and metabolic disorders (1 source) Obesity; Translations: [Obesity, unspecified] Onset: 05-26-2008 02-16-2010 Chronic Past or Other Problems Problem Classification Problem Date Documented Date Episodic/Chronic Abdominal hernia (1 source) Inguinal hernia; Translations: [Unilateral inguinal hernia, without obstruction or gangrene, not specified as recurrent] Onset: 05-26-2008 02-16-2010 Episodic Biliary tract disease (1 source) Biliary calculus; Translations: [Calculus of 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] Onset: 10-04-2010 10-04-2010 Episodic Conditions associated with dizziness or vertigo (1 source) Peripheral vertigo; Translations: [Other peripheral vertigo, unspecified ear] Onset: 05-26-2008 02-16-2010 Episodic Genitourinary symptoms and ill-defined conditions (1 source) Blood in urine; Translations: [Hematuria, unspecified] Onset: 05-26-2008 02-16-2010 Episodic Residual codes; unclassified (1 source) Family history of malignant neoplasm of gastrointestinal tract; Translations: [Family history of malignant neoplasm of digestive organs] Onset: 06-03-2008 02-16-2010 Episodic Encounters Encounter Date Encounter Type Care Provider Facility Start: 11-12-2010 End: 11-12-2010 Telephone encounter Edward Das Work Phone: General Surgery Procedures Date Procedure Procedure Detail Performing Clinician Start: 03-28-2014 Colonoscopy Edward ferrera Work Phone: Plan of Treatment Date Care Activity Detail Author Start: 11-25-2020 Influenza vaccination INFLUENZA (Sea son Ended) [facility] Start: 2019 LIPID SCREEN LIPID SCREEN [facility] Start: 06-13-2017 PROSTATE CANCER SCRE ENING DISCUSSION PROSTATE CANCER SCREENING DISCUSSION [facility] Start: 03-28-2017 Screening for malign ant neoplasm of colon [facility] Start: 2017 DIABETES SCREEN DIABETES SCREEN [facility] Start: 01-05-2017 ADVANCE DIRECTIVE DISCUSSION ADVANCE DIRECTIVE DISCUSSION [facility] Start: 01-05-2017 PNEUMOVAX AGE 65 AND OVER WITH 5YR LOOKBACK (#1) PNEUMOVAX AGE 65 AND OVER WITH 5YR LOOKBACK (#1) [facility] Start: 03-21-2013 SHINGRIX VACCINE (2 of 3) COLLINS GRIX VACCINE (2 of 3) [facility] Start: 01-05-2002 Screening for malign ant neoplasm of colon [facility] Start: 01-05-1971 Urine microalbumin profile DTAP,TDAP ,TD (1 - Tdap) [facility] Start: 01-05-1970 HEPATITIS C SCREENING HEPATITIS C SHAGUFTA BARRAGAN [facility] Start: 1964 Adult depression scr ning assessment DEPRESSION SCREENING [facility] Immunizations Immunization Date Immunization Notes Care Provider Iva adamesradhika 12-31-2009 influenza virus vacc ine, unspecified formulation Edward Das Work Phone: [facility] 02-02-2005 tetanus and diphther ia toxoids, adsorbed, preservative free, for adult use (2 Lf of tetanus toxoid and 2 Lf of diphtheria toxoid) Edward Das Work Phone: [facility] Payers Date Payer Category Payer Unknown MMO [employer]ZZM[employer] SU[employer] PLUS [id number] 2007-2018 PPO [id number] Social History Date Type Detail Facility Start: 11-01-2010 Tobacco smoking stat us [facility] Never smoker [facility] Start: 11-01-2010 Alcohol intake Current non-dr associate partner of alcohol (finding) [facility] Start: 1950 Sex Assigned At Not on file [facility] History of Past illness Narrative 03-28-2014 Note Date & Type Note Facility documented as of this encounter (statuses as of 07/14/2020) [facility] Note 11-12-2010 Telephone Encounter - Laurel Pool Lpn - 11/12/2010 9:59 AM EDTTelephone Encounter - Laurel Pool Lpn - 11/12/2010 9:54 AM EDT Note Date & Type Note Facility 11-12-2010 Miscellaneous Notes Called into pharmacy at this time spoke with Estrellita lr. Patient called in stating that he is doing much better this morning and wanted to know what to do with his Casiano. Per Dr Edward Das, patient is to start taking .4mg of flomax at hs for 14 days today and D/C Casiano on Monday morning and to contact us Monday around PM if any problems voiding. Patient notified and verbalized understanding, would like to have rx phoned into [facility] in [place]. documented in this encounter [facility] Additional Source Comments Source Comments (unrecognize d section and content) In the event this informatio n is protected by the Federal Confidentiality of Alcohol and Drug Abuse Patient Records regulations: The Federal rules restrict any use of the information to criminally investigate or prosecute any alcohol or drug abuse patient.[facility] FOR RECORDS PERTAINING TO PATIENTS WHO ARE OR HAVE BEEN ENROLLED IN A CHEMICAL DEPENDENCY/SUBSTANCEABUSE PROGRAM, SOME INFORMATION MAY BE OMITTED. This clinical summary was aggregated from multiple sources. Caution should be exercised in using it in the provision of clinical care. This summary normalizes information from multiple sources, and as a consequence, information in this document may materially change the coding, format and clinical context of patient data. In addition, data may be omitted in some cases. CLINICAL DECISIONS SHOULD BE BASED ON THE PRIMARY CLINICAL RECORDS. [facility] [employer] provides no warranty or guarantee of the accuracy or completeness of information in this document.
[2023-04-14 14:09] LABS: PSA, Free 0.57 ng/mL; PSA, Free % 27.5 % (.)
== END 2023-04-13 23:59 | disposition home or self-care (01) ==
LOC: LAB 11:13
PROVIDERS: PCP Family Medicine; Referring Provider Urology; Visit Provider Urology
DX: R36.1 Hematospermia (principal)
CPT/HCPCS: 36415; 84153; 84154

== ENCOUNTER → 2023-04-14 | Outpatient (CLI) | payer MEDICARE, OTHER, SELFPAY ==
--- NOTE | 2023-04-14 13:01 | CT_ITS ---
STUDY: CT ABDOMEN AND PELVIS WITHOUT CONTRAST REASON FOR EXAM: Male, 73 years old. Fell pain and distention RADIATION DOSAGE (If Supplied By Facility): CTDIvol = ( 15.01 ) mGy, DLP = ( 724.39 ) mGycm TECHNIQUE: Transaxial images were obtained from the dome of the diaphragm to the symphysis pubis without oral contrast, and without intravenous contrast. Sagittal and coronal images were reconstructed. Individualized dose optimization techniques were used for this CT. COMPARISON: 02/03/2021 FINDINGS: The visualized lung bases are unremarkable. The visualized portions of the heart are within normal limits. There is a prominent retrocardiac hiatal hernia Normal liver. There is non-visualization of the gallbladder, which may be secondary to either contraction or a prior cholecystectomy. Normal spleen. Normal pancreas. Normal bilateral adrenal glands. Normal right kidney. Normal left kidney. Normal visualized stomach. Normal small intestine. Scattered colonic diverticula, no CT evidence of acute diverticulitis. The appendix is visualized and appears normal. Appendix seen on coronal recon images 54 through 66 There is diffuse atherosclerotic calcification of the abdominal aorta, without a demonstrated aneurysm. Normal inferior vena cava. Normal retroperitoneum. Normal urinary bladder. There are prostatic calcifications. Normal abdominal wall. There are diffuse degenerative changes of the visualized lumbar spine, and pelvis. CT/Abdomen/Pelvis without Cont IMPRESSION: No suspicious solid organ abnormality Sigmoid diverticulosis, no CT evidence of acute diverticulitis Stable hiatal hernia with evidence of gastric bypass surgery No free intraperitoneal fluid, air, or suspicious adenopathy Electronically Signed: Ortega Garcia MD at 14:04 EST ,
--- OUTSIDE RECORDS SUMMARY | 2023-04-14 13:16 | XMS RPT_ITS | CCD ---
Author Name Unknown Address [address] [place] [address] Organization [facility] Care Team Providers Care Applications Architect Name Role Phone Farhan Lopez Primary Care Provider [phone] Maury Leavitt Primary Care Provider [phone] Medications Completed/Discontinued Medications Medication Drug Class(es) Dates [...] 11-25-2020 Influenza vaccination INFLUENZA (Sea son Ended) [facility] Start: 2019 LIPID SCREEN LIPID SCREEN [facility] Start: 06-13-2017 PROSTATE CANCER SCRE ENING DISCUSSION PROSTATE CANCER SCREENING DISCUSSION [facility] Start: 03-28-2017 Screening for malign ant neoplasm of colon [facility] Start: 2017 DIABETES SCREEN DIABETES SCREEN [facility] Start: 01-05-2017 ADVANCE DIRECTIVE DISCUSSION ADVANCE DIRECTIVE DISCUSSION [facility] Start: 01-05-2017 PNEUMOVAX AGE 65 AND OVER WITH 5YR LOOKBACK (#1) PNEUMOVAX AGE 65 AND OVER WITH 5YR LOOKBACK (#1) [facility] Start: 03-21-2013 SHINGRIX VACCINE (2 of 3) COLLINS GRIX VACCINE (2 of 3) [facility] Start: 01-05-2002 Screening for malign ant neoplasm of colon [facility] Start: 01-05-1971 Urine microalbumin profile DTAP,TDAP ,TD (1 - Tdap) [facility] Start: 01-05-1970 HEPATITIS C SCREENING HEPATITIS C SHAGUFTA BARRAGAN [facility] Start: 1962 Adult depression scr ning assessment DEPRESSION SCREENING [facility] Immunizations Immunization Date Immunization Notes Care Provider Iva adamesradhika 12-31-2009 influenza virus vacc ine, unspecified formulation Edward Das Work Phone: [facility] 02-02-2005 tetanus and diphther ia toxoids, adsorbed, preservative free, for adult use (2 Lf of tetanus toxoid and 2 Lf of diphtheria toxoid) Edward Das Work Phone: [facility] Payers Date Payer Category Payer Unknown MMO ZZZMMO SUPER MED PLUS [id number] 2007-2018 PPO [id number] Social History Date Type Detail Facility Start: 11-01-2010 Tobacco smoking stat us [facility] Never smoker [facility] Start: 11-01-2010 Alcohol intake Current non-dr project inspector of alcohol (finding) [facility] Start: 1950 Sex Assigned At Not on file [facility] History of Past illness Narrative 03-28-2014 Note Date & Type Note Facility documented as of this encounter (statuses as of 07/14/2020) [facility] Note 11-12-2010 Telephone Encounter - Laurel Pool [...] like to have rx phoned into [facility] in [place]. documented in this encounter [facility] Additional Source Comments Source Comments (unrecognize d section and content) In the event this informatio n is protected by the Federal Confidentiality of Alcohol and Drug Abuse Patient Records regulations: The Federal rules restrict any use of the information to criminally investigate or prosecute any alcohol or drug abuse patient.[facility] FOR RECORDS PERTAINING TO PATIENTS WHO ARE [...] BE BASED ON THE PRIMARY CLINICAL RECORDS. [facility] [employer] provides no warranty or guarantee of the accuracy or completeness of information in this document.
== END | disposition home or self-care (01) ==
LOC: CT 12:57
PROVIDERS: PCP Family Medicine; Referring Provider Urology; Visit Provider Urology
DX: R36.1 Hematospermia (principal); R31.21 Asymptomatic microscopic hematuria
CPT/HCPCS: 74176

== ENCOUNTER → 2024-04-23 | Outpatient (CLI) | payer MEDICARE, OTHER, SELFPAY ==
[2024-04-23 10:35] LABS: Hematocrit 45.1 % (40-54); Hemoglobin 14.7 g/dL (13.0-16.5); Mean Corp Hgb Conc 32.6 g/dL (32-36); Mean Corpuscular Hgb 30.2 pg (27.0-32.0); Mean Corpuscular Volume 92.8 fL (80-94); Mean Platelet Vol. 10.4 fl (6.2-12.0); Platelet Count 263 K/mm3 (150-450); RBC Distribution Width CV 12.8 % (11.6-14.6); RBC Distribution Width SD 43.6 fl (35.1-43.9); Red Blood Count 4.86 M/mm3 (4.6-6.2); White Blood Count 6.4 K/mm3 (4.4-11.0)
[2024-04-23 11:16] LABS: ALB/GLOB Ratio 0.8 RATIO (0.9-2.4); AST(SGOT) 18 U/L (15-37); Alanine Aminotransfer ALT/SGPT 19 U/L (16-61); Albumin, Serum 3.4 g/dL (3.2-5.0); Alkaline Phosphatase 83 U/L (45-117); Anion Gap 7 (5-15); BUN 21 mg/dL (7-18); BUN/Creat Ratio 18.4 RATIO (10-20); Calcium,Total 8.9 mg/dL (8.5-10.1); Chloride 104 mmol/L (98-107); Creatinine, Serum 1.14 mg/dL (0.70-1.30); EST Glomerular Filtration Rate 67 mL/min (>60); Est Glom Filt Rate - Afr Amer 81 mL/min (>60); Globulin 4.1 g/dL (2.2-4.2); Glucose 98 mg/dL (74-106); Protein, Total 7.5 g/dL (6.4-8.2); Sodium Level 138 mmol/L (136-145)
[2024-04-23 11:24] LABS: PSA,Total - Annual Screen 1.58 ng/mL (0.00-4.00)
== END | disposition home or self-care (01) ==
PROVIDERS: PCP Family Medicine; Referring Provider Urology; Visit Provider Urology
DX: Z12.5 Encounter for screening for malignant neoplasm of prostate (principal); G25.0 Essential tremor
CPT/HCPCS: 36415; 80053; 84153; 85027; G0103